=== PATIENT | male | born 1965 | race Caucasian/White ===

== ENCOUNTER 2016-12-15 16:09 | Emergency (ER) | payer MEDICAID ==
[~2016-12-15] VITALS: Ht 175.3 cm; Wt 129.3 kg
[2016-12-15 18:28] VITALS: BP 151/82
[2016-12-15] MEDS ORDERED: CYCLOBENZAPRINE HCL 10 MG TAB PO ONE (19:00)
[2016-12-15] MEDS ORDERED: IBUPROFEN 600 MG TAB PO ONE (19:00)
== END 2016-12-15 19:38 | disposition home or self-care (01) ==
LOC: ER 16:22
DX: S76.012A Strain of muscle, fascia and tendon of left hip, initial encounter (principal); X58.XXXA Exposure to other specified factors, initial encounter; Y93.89 Activity, other specified; Y99.8 Other external cause status; Y92.89 Other specified places as the place of occurrence of the external cause